=== PATIENT | female | born 1950 | race African-American/Black ===

== ENCOUNTER 2017-05-12 10:14 | Day surgery (SDC) | payer OTHER ==
[2017-05-05 11:24] VITALS: BMI 36.6
--- NOTE | 2017-05-12 12:29 | HP ---
History & Physical Update - History History: No Change - Physical Physical: No Change - Assessment Assessment: No Change - Plan Plan: No Change
[2017-05-12] MEDS ORDERED: MIDAZOLAM HCL 2 MG/2 ML SINGLE DOSE VIAL ONE (12:33)
[2017-05-12] MEDS ORDERED: BUPIVACAINE HCL/PF 2.5 MG/ML - 30 ML VIAL IJ ONE (12:35)
[2017-05-12] MEDS ORDERED: ROCURONIUM BROMIDE 50 MG/5 ML VIAL ONE (12:43)
[2017-05-12] MEDS ORDERED: PROPOFOL 20 ML ONE ×2 (12:43)
[2017-05-12] MEDS ORDERED: SUCCINYLCHOLINE CHLORIDE 200 MG/10 ML VIAL ONE (12:43)
[2017-05-12] MEDS ORDERED: ceFAZolin SODIUM 1 GM VIAL ONE (13:14)
[2017-05-12] MEDS ORDERED: BUPIVACAINE HCL/PF 0.25% (2.5MG/ML) 10 ML VIAL IJ ONE (14:50)
--- NOTE | 2017-05-12 15:01 | OP ---
Operative Note - Note: Operative Date: 05/12/17 Pre-Operative Diagnosis: Multinodular goiter, compressive symptoms Operation: Near Total thryroidectomy Implants: None Post-Operative Diagnosis: Same as Pre-op Surgeon: Chana Johnson [employer] Hand: Yessi Gonzales Anesthesiologist/RAILROAD POLICE: Cristy Miller Anesthesia: General Specimens Removed: Total left lobe, isthmus, near total right lobe Estimated Blood Loss (mls): 150 Drains & Tubes with Location: JIM Operative Report Dictated: Yes
[2017-05-12] MEDS ORDERED: ALBUTEROL SO4 0.083% IH SOL 2.5 MG/3 ML VIAL.NEB. NEB PRN (15:03)
[2017-05-12] MEDS ORDERED: LIDOCAINE HCL 4% TOPICAL SOLN (50 ML/BOTTLE) ONE (15:07)
[2017-05-12] MEDS ORDERED: HYDROmorphone HCL CARPU-JECT 1 MG/1 ML DISP.SYRIN IVPB PRN (15:09)
[2017-05-12] MEDS ORDERED: HYDROmorphone HCL CARPU-JECT 2 MG/1 ML DISP.SYRIN IVPB PRN (15:10)
[2017-05-12] MEDS ORDERED: ONDANSETRON 4 MG/2 ML VIAL IVPB PRN (15:11)
[2017-05-12] MEDS ORDERED: SODIUM CHLORIDE 1,000 ML IV SCH (15:15)
[2017-05-12] MEDS ORDERED: oxyCODONE HCL 5 MG TABLET PO PRN (15:29)
[2017-05-12] MEDS ORDERED: LACTATED RINGERS SOLUTION 1,000 ML IV SCH (15:30)
[2017-05-12] MEDS ORDERED: ONDANSETRON 4 MG/2 ML VIAL ONE (15:35)
--- NOTE | 2017-05-12 16:17 | OP ---
DATE OF OPERATION: 05/12/2017 PREOPERATIVE DIAGNOSIS: Large goiter, multinodular, with respiratory compromise and dysphagia. POSTOPERATIVE DIAGNOSIS: Large goiter, multinodular, with respiratory compromise and dysphagia. OPERATIVE PROCEDURE: Near-total thyroidectomy. SURGEON: Rohit Johnson MD MOVIE STUNT PERFORMER: MARCEL Jimenez ANESTHESIA: General endotracheal intubation. The patient was admitted with massive thyromegaly, left side bigger than the right side, with tracheal compression and some dysphagia. Patient was euthyroid state. Patient was brought to the operating room, on intravenous antibiotic, and awake intubation using the fiberoptic was used. Once the airway was established, the neck was extended and incision was made in the lower part of the neck, and the platysma muscle was dissected underneath the skin level and lifted upwards towards the thyroid cartilage on the top and to the sternal notch on the bottom. The midline was opened and the thyroid gland was dissected. On the left side, had multinodular goiter. One was a large colloidal lobe, which was away from the main gland. This was taken out separately to have some room for dissection, and the lower lobe, which was extending into the suprasternal notch, was delivered and then care was taken to avoid injury to the recurrent laryngeal nerve, which was inspected on the left side, and the superior pole of the gland was again taken down right on the gland level to prevent injury to the superior laryngeal nerve, and the isthmus was then taken from the trachea. On the right side, part of the thyroid gland was left behind, and the inferior lobe, to avoid injury to the recurrent laryngeal nerve and also to preserve the parathyroid gland. Some part of the thyroid gland was left behind in the middle of the trachea, and superior lobe and inferior lobe were taken out. The remainder of the gland was removed. The bipolar cautery was used for most of the dissection. Once the gland was removed, after adequate hemostasis, the strap muscles were closed together and platysma was closed and patient was extubated and went to the recovery room in stable condition with no neurological deficit, with a normal voice. ROHIT JOHNSON M.D. [id number]
--- NOTE | 2017-05-12 16:29 | EKG ---
Test Reason : Blood Pressure : / mmHG Vent. Rate : 074 BPM Atrial Rate : 074 BPM P-R Int : 158 ms QRS Dur : 066 ms QT Int : 424 ms P-R-T Axes : 054 059 046 degrees QTc Int : 470 ms NORMAL SINUS RHYTHM NORMAL ECG NO PREVIOUS ECGS AVAILABLE Confirmed by MD Kitty, Thomas ([id number]) on 05/12/2017 4:28:51 PM Referred By: Chana Johnson Confirmed By:Thomas Tang MD
[2017-05-12] MEDS: INSULIN SLIDING SCALE (NOVOLOG) 1 VIAL SQ SCH ×2 (18:50→21:47)
[2017-05-12 20:28] LABS: ALBUMIN 3.1 g/dl (3.5-5.0); ALK PHOS 60 U/L (32-92); ANION GAP 3 (8-16); BILIRUBIN,TOTAL 0.4 mg/dl (0.2-1.0); BLOOD UREA NITROGEN 24 mg/dl (7-18); CALCIUM 8.2 mg/dl (8.4-10.2); CHLORIDE 111 mmol/L (98-107); CO2 23 mmol/L (22-28); CREATININE 1.4 mg/dl (0.6-1.3); GLUCOSE,RANDOM 143 mg/dl (74-106); SGOT/AST 11 U/L (10-42); SGPT/ALT 9 U/L (10-40); SODIUM 137 mmol/L (136-145); TOT PROT 5.6 g/dl (6.4-8.3)
[2017-05-12 20:30] LABS: POTASSIUM 5.8 mmol/L (3.5-5.1)
[2017-05-12] MEDS: DOCUSATE SODIUM 100 MG CAPSULE (FP) PO SCH (21:44)
[2017-05-12] MEDS: BUDESONIDE/FORMETEROL FUMARATE 80/4.5 mcg INHALER IH SCH (22:00)
[2017-05-13] MEDS ORDERED: PT OWN MED DRAWER 7, Y5N ONE ×3 (04:07→10:02)
[2017-05-13 06:24] VITALS: BP 114/48; PULSE 94; TEMP 98.5
[2017-05-13] MEDS: INSULIN SLIDING SCALE (NOVOLOG) 1 VIAL SQ SCH ×2 (06:34→14:04)
[2017-05-13] MEDS ORDERED: LEVOTHYROXINE NA 150 MCG TABLET PO SCH (07:00)
[2017-05-13 08:50] LABS: HEMATOCRIT 26.5 % (32.4-45.2); HEMOGLOBIN 8.5 GM/dl (10.7-15.3); MCH 24.8 pg (25.7-33.7); MCHC 32.1 g/dl (32.0-36.0); MEAN CELL VOLUME 77.3 fl (80-96); MEAN PLT VOLUME 9.6 fl (7.5-11.1); PLATELET COUNT 289 K/MM3 (134-434); RBC 3.43 M/mm3 (3.60-5.2); RDW 15.2 % (11.6-15.6); WHITE BLOOD COUNT 13.8 K/mm3 (4.0-10.8)
[2017-05-13 09:04] LABS: ALBUMIN 2.8 g/dl (3.5-5.0); ALK PHOS 51 U/L (32-92); ANION GAP 4 (8-16); BILIRUBIN,TOTAL 0.6 mg/dl (0.2-1.0); BLOOD UREA NITROGEN 22 mg/dl (7-18); CALCIUM 7.7 mg/dl (8.4-10.2); CHLORIDE 109 mmol/L (98-107); CO2 21 mmol/L (22-28); CREATININE 1.4 mg/dl (0.6-1.3); GLUCOSE,RANDOM 85 mg/dl (74-106); POTASSIUM 5.2 mmol/L (3.5-5.1); SGOT/AST 11 U/L (10-42); SODIUM 134 mmol/L (136-145)
[2017-05-13 09:41] LABS: SGPT/ALT < 8 U/L (10-40)
[2017-05-13] MEDS ORDERED: metoPROLOL SUCCINATE 25 MG TAB.SR.24H (FP) PO SCH (10:00)
[2017-05-13] MEDS ORDERED: TOLTERODINE TARTRATE 2 MG TABLET PO SCH (10:00)
[2017-05-13] MEDS ORDERED: LISINOPRIL 10 MG TABLET (FP) PO SCH (10:00)
[2017-05-13] MEDS ORDERED: ASPIRIN 81 MG CHEWABLE TABLETS PO SCH (10:00)
--- NOTE | 2017-05-13 10:02 | PN ---
Progress Note (short form) - Note Progress Note: ANESTHESIOLOGY POST-OP CHECK 66F s/p total thyroidectomy under general anesthesia, POD #1. No acute complaints. Pain 6/10 and tolerable. Denies N/V currently. Ambulating and voiding. Vital Signs Temperature 98.5 F 05/13/17 06:00 Pulse Rate 94 H 05/13/17 06:00 Respiratory Rate 18 05/13/17 06:00 Blood Pressure 114/48 05/13/17 06:00 O2 Sat by Pulse Oximetry (%) 96 05/13/17 06:22 Active Medications Albuterol Sulfate (Ventolin 0.083% Nebulizer Soln -) 1 amp NEB Q6H PRN PRN Reason: SHORT OF BREATH/WHEEZING Aspirin (Asa -) 81 mg PO DAILY [facility] Atorvastatin Calcium (Lipitor -) 10 mg PO HS [facility] Budesonide/Formoterol Fumarate (Symbicort 80/4.5mcg -) 2 puff IH BID [facility] Last Admin: 05/12/17 22:00 Dose: 2 puff Docusate Sodium (Colace -) 100 mg PO BID [facility] Last Admin: 05/12/17 21:44 Dose: 100 mg Hydromorphone HCl (Dilaudid Injection -) 1 mg IVPB Q4H PRN PRN Reason: PAIN LEVEL 4-6 Hydromorphone HCl (Dilaudid Injection -) 2 mg IVPB Q4H PRN PRN Reason: PAIN LEVEL 7 - 10 Sodium Chloride (Normal Saline -) 1,000 mls @ 100 mls/hr IV ASDIR [facility] Last Admin: 05/12/17 18:50 Dose: Not Given Lactated Ringer's (Lactated Ringers Solution) 1,000 mls @ 125 mls/hr IV ASDIR [facility] Last Admin: 05/12/17 18:50 Dose: Not Given Insulin Aspart (Novolog Vial Sliding Scale -) 1 vial SQ ACHS [facility] PRN Reason: Protocol Last Admin: 05/13/17 06:34 Dose: Not Given Levothyroxine Sodium (Synthroid -) 150 mcg PO DAILY@0700 [facility] Last Admin: 05/13/17 06:13 Dose: 150 mcg Lisinopril (Prinivil) 10 mg PO DAILY [facility] Metoprolol Succinate (Toprol Xl -) 25 mg PO DAILY [facility] Ondansetron HCl (Zofran Injection) 4 mg IVPB Q6H PRN PRN Reason: NAUSEA AND/OR VOMITING Last Admin: 05/12/17 17:30 Dose: 4 mg Oxycodone/Acetaminophen (Percocet 5/325 -) 1 combo PO Q4H PRN PRN Reason: PAIN LEVEL 1 - 3 Tolterodine Tartrate (Detrol -) 2 mg PO DAILY [facility] Gen: Awake, alert No apparent anesthesia complications. Pain controlled. Continue management as per primary team.
[2017-05-13] MEDS: BUDESONIDE/FORMETEROL FUMARATE 80/4.5 mcg INHALER IH SCH (10:03)
[2017-05-13] MEDS: DOCUSATE SODIUM 100 MG CAPSULE (FP) PO SCH (10:03)
--- NOTE | 2017-05-13 12:16 | PN ---
Progress Note (short form) - Note Progress Note: No complaints. Pain well controlled with Percocet. Pt has been out of bed to the bathroom multiple times. Has voided. No BM yet. Nurse states JIM was last emptied at 6am. Denies difficulty swallowing or breathing, chest pain, SOB, dizziness upon standing, perioral paresthesias, muscle cramps, abd pain, N/V. General: A&O, NAD. Neck: Incision c/d/i with jenna, no edema, serosanguinous drainage on dressing and 15cc of serosanguinous drainage in JIM. Heart: RRR; no murmurs, rubs, or gallops. Lungs: CTA bilaterally; no wheezes, rales, or rhonchi. Abdomen: soft, non-tender. One day s/p near total thyroidectomy. Dressing changed. JIM removed. Tolerated well. Anemia secondary to acute blood loss. H&H 8.5/26.5 this morning. Asymptomatic, VSS. Will send home with Iron supplements. Corrected calcium 8.6. Potassium 5.8 last night. Rechecked and 5.2 this morning. Will tell patient to decrease her Lisinopril from 10mg to 5mg until seen by PCP. Discharge home today.
[2017-05-13] MEDS ORDERED: REFRIGERATED ANITBIOTICS ONE (12:28)
[2017-05-13] MEDS ORDERED: ATORVASTATIN CA 10 MG TABLET (FP) PO SCH (22:00)
--- NOTE | 2017-05-20 15:15 | PATH ---
Surgical Pathology Report Patient Name: BARRY GOVEA [facility]. Rec. #: [id number] /Age/Gender: 1950 (Age: 66) / F Account: [id number] Location: [facility] AMBULATORY Taken: 05/12/2017 Received: 05/12/2017 Reported: 05/20/2017 Physicians: Chana Johnson M.D. Specimen(s) Received A: LEFT THYROID B: RIGHT THYROID Clinical History Large goiter with dysphagia and respiratory compromise Final Diagnosis A. THYROID, LEFT LOBE, EXCISION: BENIGN NODULAR HYPERPLASIA (NODULAR GOITER). B. THYROID, RIGHT LOBE, EXCISION: BENIGN NODULAR HYPERPLASIA (NODULAR GOITER). Electronically Signed Swati Mclean M.D. Gross Description A. Received in formalin labeled "left thyroid," is a 274 g, 13.5 x 8.5 x 5.0 cm aggregate of multiple unoriented portions of thyroid and colloid material. The identifiable portions of thyroid capsule are inked blue and the specimens are serially sectioned. Sectioning reveals a 0.8 x 0.4 x 0.5 cm warren, firm solid nodule at 0.6 cm from the capsule. The remaining thyroid parenchyma displays diffuse heterogeneous, focally hemorrhagic colloid nodules measuring up to 4.5 cm in greatest dimension. No normal thyroid parenchyma is identified. Manager Inventory Management sections are submitted in 10 cassettes as follows: 1-solid nodule; 9-25-aguycortkn dermatology sales representative thyroid. B. Received in formalin labeled "right thyroid," is a 64 g, 8.0 x 4.6 x 3.2 cm thyroid lobe. The capsule is not intact. There is an additional 3.4 x 3.0 x 2.0 cm portion of colloid material received within the same container. The capsule is inked blue and the specimen is serially sectioned. Sectioning reveals multiple heterogeneous, focally hemorrhagic colloid nodules, measuring up to 2 cm in greatest dimension. The remaining thyroid parenchyma is red-brown and beefy. Manager Inventory Management sections are submitted in 9 cassettes as follows: 8-7-[id number] nodules, sequentially submitted; 8-uninvolved dermatology sales representative parenchyma; 9-separately received colloid material. 05/13/201705/13/2017
== END 2017-05-13 13:38 | disposition home or self-care (01) ==
LOC: FASU 10:14 → FM/S 18:40 → FASU 05-13 13:38
PROVIDERS: ATTEND Surgery Vascular Surgery
PROC: 0GBH0ZZ Excision of Right Thyroid Gland Lobe, Open Approach (ICD-10-PCS; 2017-05-12)
PROC: 0GBG0ZZ Excision of Left Thyroid Gland Lobe, Open Approach (ICD-10-PCS; principal; 2017-05-12 13:21)
DX: E04.2 Nontoxic multinodular goiter (principal)
CPT/HCPCS: 36415; 80053; 82962; 85027; 88307-TC; 93005; 94760